=== PATIENT | male | born 1955 | race Caucasian/White ===

== ENCOUNTER 2016-10-21 00:16 | Day surgery (SDC) | payer OTHER ==
[~2016-10-21] VITALS: Ht 182.9 cm; Wt 90.7 kg
[~2016-10-21 00:16] MED LIST: ALLO300T2 PO; CHOL100045 PO; LIP40 PO
[2016-10-21] MEDS ORDERED: Lactated Ringer's 1,000 ML IV ONE (06:00)
[2016-10-21] MEDS ORDERED: Sodium Chloride LOK Flush 10 mL Syringe IV PRN (06:00)
[2016-10-21] MEDS ORDERED: fentaNYL-PF 50 mCg/mL 2 mL Inj IVPUSH PRN (06:00)
[2016-10-21 10:00] VITALS: BP 127/87; PULSE 69; RESP 14; O2SAT 97
[2016-10-21] MEDS: 0.9% Sodium Chloride 1,000 ML IV SCH ×2 (10:12→10:32)
[2016-10-21 10:48] VITALS: BP 113/70; PULSE 58; RESP 16; O2SAT 96
[2016-10-21 10:52] VITALS: BP 109/76; PULSE 63; RESP 14; O2SAT 94
--- NOTE | 2016-10-21 12:56 | ENDO ---
[address] [address] ENDOSCOPY PROCEDURE PATIENT: HARPREET SOUZA : 1955 MR#: [id number] ADMIT: 10/21/2016 JOB ID: [id number] PRIMARY PROVIDER: Mary Cruz MD PROCEDURE: Colonoscopy with hot snare polypectomies. INDICATIONS: A 61-year-old male who reports for colon cancer screening. EQUIPMENT: PCF H 190 DL. SEDATION: 4 mg Versed and 75 mcg fentanyl. COMPLICATIONS: None identified. BOWEL PREPARATION: Fair, adequate exam. PROCEDURE INFORMATION: After the risks and benefits were explained, written and verbal informed consent was obtained. The patient was brought into the endoscopy suite and placed into the left lateral decubitus position. Sedation was achieved as above. Digital rectal examination accomplished. Mild internal hemorrhoids appreciated. The scope was introduced into the rectum and advanced to the cecum as identified by the appendiceal orifice and ileocecal valve. The scope was slowly withdrawn to carefully examine the mucosa for any defects or lesions. Retroflexed views were avoided in the rectum. Careful inspection was accomplished at the level of the dentate line for any pathology. The colon was decompressed and the scope removed from the patient, who tolerated the procedure well. FINDINGS: No evidence of any colitis throughout. In the transverse colon there was a sessile 6-7 mm polyp removed with hot snare. In the sigmoid there was a semi-pedunculated 7-8 mm polyp removed with hot snare. ENDOSCOPIC DIAGNOSIS: 1. Hemorrhoids. 2. Colon polyps. RECOMMENDATIONS: 1. Await histopathology. 2. Repeat colonoscopy in five years.
--- NOTE | 2016-10-22 16:34 | PATH ---
SURGICAL PATHOLOGY Attending Physician:Roly Shahid CASE STATUS: Signed Out PATIENT NAME: HARPREET SOUZA PID: [id number] : 1955 DATE COLLECTED:10/21/2016 16:31 SPECIMEN: 1: Colon, Polyp 2: Colon, Polyp CLINICAL HISTORY: 1). TRANSVERSE COLON POLYP 2). SIGMOID COLON POLYP FINAL DIAGNOSIS: 1.TRANSVERSE COLON, POLYP, BIOPSY: PORTION OF TUBULAR ADENOMA X1; NEGATIVE FOR HIGH-GRADE DYSPLASIA. SUPERFICIAL PORTION OF COLORECTAL MUCOSA X1 WITH A LYMPHOID AGGREGATE AND NO DIAGNOSTIC ABNORMALITY. 2.SIGMOID COLON, POLYP, BIOPSY: TUBULAR ADENOMA; NEGATIVE FOR HIGH-GRADE DYSPLASIA. ICD10 K63.5 GROSS DESCRIPTION: The specimen is received in two formalin filled containers labeled with the patient's name. 1). The specimen is labeled "transverse colon polyp" and consists of two portions of tissue 0.4 x 0.2 x 0.2 CM in aggregate which is entirely submitted in cassette 1A. 2). The specimen is labeled "sigmoid colon polyp" and consists of a 0.5 x 0.5 x 0.4 CM portion of tissue which is entirely submitted in cassette 2A. 10/21/2016DC MICRO DESCRIPTION: See diagnosis. ICD-9 CODES: CPT CODES: 1: 70433 2: 25213 Electronically Signed Out Sita Pearl MD [facility] Pathology [facility] [address], [place] [address] Technical component performed at [facility], [facility] [address], [place], [address]
== END 2016-10-21 23:59 | disposition home or self-care (01) ==
LOC: END 00:16
PROVIDERS: ATTEND Internal Medicine Gastroenterology
DX: Z12.11 Encounter for screening for malignant neoplasm of colon (principal); D12.3 Benign neoplasm of transverse colon; D12.5 Benign neoplasm of sigmoid colon; K64.9 Unspecified hemorrhoids; E78.2 Mixed hyperlipidemia; R73.03 Prediabetes; R73.01 Impaired fasting glucose; M10.9 Gout, unspecified
CPT/HCPCS: 45385; G0500; J2250; J3010; J7030